=== PATIENT | female | born 1945 | race Caucasian/White ===

== ENCOUNTER → 2016-05-30 | Outpatient (CLI) | payer OTHER ==
[~2016-05-30] MED LIST: GADOBUTROL 10 ML VIAL IVP ONE
--- NOTE | 2016-05-30 18:10 | CT ---
CT CHEST, without contrast HISTORY: Follow-up pulmonary nodules, history of kidney cancer TECHNIQUE: Multidetector noncontrast helical CT was performed through the chest. COMPARISON: March 05, 2016 Findings: 4 tiny noncalcified right lung pulmonary nodules, series 3 image 119, 141, 144 and 172 are stable. 2 low density lesions in the right lobe of the liver, in the dome measuring 4.2 cm and in the lower lateral right lower lobe measuring 1.8 cm are stable. A tiny low-density lesion in the anterio r left lobe of the liver on image 183 is also unchanged in retrospect. There are no new pulmonary nod ules or liver lesions. There is no mediastinal or hilar adenopathy. The left thyroid lobe remains abs ent. The right thyroid gland remains normal. Heart size is normal without pericardial effusion. There is no pleural effusion. No skeletal abnormality is identified. Impression: Stable pulmonary nodules and liver lesions x3 months. These have been previously reported stable since August 2015. No evidence for metastatic disease.
--- NOTE | 2016-05-30 18:26 | MR ---
MRI of the Abdomen (Without and With Contrast) Clinical Indications: Right abdominal pain, history of left renal cell carcinoma treated with nephrec truong Technique: Precontrast 2D FIESTA axial , FSE T2 breath-hold axial and coronal, in and out of phase a xial imaging, and T1 LAVA fat-suppressed imaging. Pre- and postcontrast axial T1 fat-suppressed image s before and 1 minute, 3 minutes, 5 minutes and 10 minutes after 10 mL of Gadavist were injected intr avenously without complication using a power injector. Findings: Suspect cholelithiasis. No obvious secondary evidence for biliary dilatation or cholecystit is. There is no evidence of recurrent mass in the left nephrectomy bed or retroperitoneal adenopathy at the level of the renal miladys. Multiple hepatic cysts, mild fatty infiltration of the liver and mese nteric panniculitis in the left abdomen are stable. There is no ascites or evidence for metastatic re nal cell carcinoma.. Impression:1. Possible cholelithiasis. Consider fasting gallbladder sonography for further evaluation . 2. The remainder of the MRI is stable x4 months and reportedly stable since 2013.
== END ==
LOC: FIMAGING 14:31
PROVIDERS: ATTEND Internal Medicine Hematology & Oncology
DX: R10.12 Left upper quadrant pain (principal); Z85.528 Personal history of other malignant neoplasm of kidney
CPT/HCPCS: A9585

== ENCOUNTER → 2016-06-19 | Outpatient (CLI) | payer OTHER ==
--- NOTE | 2016-06-19 16:52 | US ---
Right Upper Quadrant Abdominal Sonogram History: Possible gallstones, RUQ pain, R10.11, K80.20. Comparison: MRI abdomen May 30, 2016 Findings: There are several mobile gallstones, maximally measuring 8 mm. There is no gallbladder wall thickening or pericholecystic fluid. The liver is echogenic consistent with fatty infiltration. It m easures 15 cm in length. There is no intra or extrahepatic biliary dilatation. The right kidney, visu alized pancreas, and common duct (6 mm) are normal. Hepatic simple cysts are confirmed. There is no a scites. The visualized aorta and IVC are normal. Impression: 1. Nonobstructive cholelithiasis. 2. Benign hepatic cysts.
== END ==
LOC: BRMIMAGING 11:24
PROVIDERS: ATTEND Surgery
DX: K80.20 Calculus of gallbladder without cholecystitis without obstruction (principal); K76.89 Other specified diseases of liver
CPT/HCPCS: 76705-PO

== ENCOUNTER 2016-07-14 05:37 | Day surgery (SDC) | payer OTHER ==
[2016-07-14] MEDS ORDERED: LR 1,000 ML IV ONE (05:47)
[2016-07-14] MEDS ORDERED: LIDOCAINE 1% 5 ML SDV ID PRN (05:47)
[2016-07-14] MEDS ORDERED: LIDOCAINE 1% 5 ML SDV ONE (05:49)
[2016-07-14] MEDS ORDERED: cefOXitin SODIUM 1 GM in D5W 50 ML IV ONE (06:00)
[2016-07-14] MEDS ORDERED: BUPIVACAINE 0.5% 30 ML SDV ONE (06:32)
[2016-07-14] MEDS ORDERED: HEPARIN 1000 UNIT/1 ML MDV ONE ×2 (06:32)
[2016-07-14] MEDS ORDERED: ceFAZolin 1 GM/5 ML SYR ONE (06:32)
[2016-07-14 06:41] LABS: % IMMATURE GRANULYOCYTES 0.2 % (0.0-1.1); ABSOLUTE IMMATURE GRANULOCYTES 0.01 10^3/uL (0.00-0.10); ADD DIFF? NO; ADD MORPH? NO; ADD SCAN? NO; ATYPICAL LYMPHOCYTE FLAG 0 (0-99); FRAGMENT RBC FLAG 0 (0-99); HEMATOCRIT 41.8 % (38.0-47.0); LEFT SHIFT FLG 0 (0-99); LIPEMIA HEMOLYSIS FLAG 80 (0-99); MEAN CELL HEMOGLOBIN 28.7 pg (27.9-34.1); MEAN CELL HEMOGLOBIN CONCENTR. 33.5 g/dL (32.4-36.7); MEAN CELL VOLUME 85.8 fL (81.5-99.8); PLATELET CLUMPS FLAG 0 (0-99); PLATELET COUNT 211 10^3/uL (150-400); RED BLOOD CELL COUNT 4.87 10^6/uL (4.18-5.33); RED CELL DISTRIBUTION WIDTH 13.6 % (11.5-15.2)
[2016-07-14 06:47] LABS: ALBUMIN 3.9 g/dL (3.5-5.0); BILIRUBIN,TOTAL 0.7 mg/dL (0.1-1.4); BILIRUBIN-CONJUGATED 0.3 mg/dL (0.0-0.5); BILIRUBIN-UNCONJUGATED 0.4 mg/dL (0.0-1.1)
[2016-07-14] MEDS ORDERED: DEXAMETHASONE 4 MG/ML VIAL ONE (07:06)
[2016-07-14] MEDS ORDERED: ONDANSETRON 4 MG/2 ML VIAL ONE ×2 (07:06→09:40)
[2016-07-14] MEDS ORDERED: LIDOCAINE 2% 100 MG/5 ML SYR IVP ONE (07:06)
[2016-07-14] MEDS ORDERED: MIDAZOLAM 2 MG/2 ML VIAL ONE (07:06)
[2016-07-14] MEDS ORDERED: ROCURONIUM 50 MG/5 ML VIAL ONE (07:06)
[2016-07-14] MEDS ORDERED: PROPOFOL 200 MG/20 ML VIAL ONE (07:06)
[2016-07-14] MEDS ORDERED: SUGAMMADEX SODIUM 200 MG/2 ML VIAL IVP ONE (07:06)
[2016-07-14] MEDS ORDERED: fentaNYL 250 MCG/5 ML INJ ONE (07:06)
[2016-07-14 07:24] LABS: ANION GAP 12 mEq/L (8-16); CALCIUM 9.1 mg/dL (8.5-10.4); CARBON DIOXIDE 22 mEq/l (22-31); CHLORIDE 110 mEq/L (97-110); CREATININE 1.1 mg/dL (0.6-1.0); GLOMERULAR FILTRATION RATE 49; GLUCOSE 89 mg/dL (70-100); POTASSIUM 4.4 mEq/L (3.5-5.2); SODIUM 144 mEq/L (134-144)
[2016-07-14] MEDS ORDERED: HYDROmorphONE/DILAUDID 1 MG/ML SYR ONE (09:19)
[2016-07-14] MEDS ORDERED: PROMETHAZINE HCL 25 MG/ML INJ ONE (09:54)
[2016-07-14] MEDS ORDERED: HYDROCODONE/APAP 5/325 TAB ONE (11:55)
== END 2016-07-14 13:30 | disposition home health service (06) ==
LOC: FSGY 05:37
PROVIDERS: ATTEND Surgery
PROC: 0WQF0ZZ Repair Abdominal Wall, Open Approach (ICD-10-PCS; principal; 2016-07-14 07:15)
PROC: 0FT44ZZ Resection of Gallbladder, Percutaneous Endoscopic Approach (ICD-10-PCS; principal; 2016-07-14 07:15)
DX: K80.20 Calculus of gallbladder without cholecystitis without obstruction (principal); K42.9 Umbilical hernia without obstruction or gangrene; I10 Essential (primary) hypertension; Z85.528 Personal history of other malignant neoplasm of kidney; Z90.5 Acquired absence of kidney
CPT/HCPCS: J0697; J1100; J1170; J2001; J2250; J2405; J2550; J2704; J3010

== ENCOUNTER 2016-08-03 21:35 | Emergency (ER) | payer OTHER ==
[2016-08-03 21:48] VITALS: RESP 18
[2016-08-03 22:15] LABS: % IMMATURE GRANULYOCYTES 0.1 % (0.0-1.1); ABSOLUTE IMMATURE GRANULOCYTES 0.01 10^3/uL (0.00-0.10); ADD DIFF? NO; ADD MORPH? NO; ADD SCAN? NO; ATYPICAL LYMPHOCYTE FLAG 0 (0-99); FRAGMENT RBC FLAG 0 (0-99); HEMATOCRIT 43.4 % (38.0-47.0); HEMOGLOBIN 14.5 g/dL (12.6-16.3); LEFT SHIFT FLG 0 (0-99); LIPEMIA HEMOLYSIS FLAG 80 (0-99); MEAN CELL HEMOGLOBIN 28.6 pg (27.9-34.1); MEAN CELL HEMOGLOBIN CONCENTR. 33.4 g/dL (32.4-36.7); MEAN CELL VOLUME 85.6 fL (81.5-99.8); MEAN PLATELET VOLUME 10.8 fL (8.7-11.7); PLATELET CLUMPS FLAG 10 (0-99); PLATELET COUNT 231 10^3/uL (150-400); RED BLOOD CELL COUNT 5.07 10^6/uL (4.18-5.33); RED CELL DISTRIBUTION WIDTH 13.7 % (11.5-15.2)
[2016-08-03 22:18] LABS: COLOR PALE YELLOW; LEUKOCYTE ESTERASE,URINE NEGATIVE (NEGATIVE); NITRITE,URINE NEGATIVE (NEGATIVE)
--- NOTE | 2016-08-03 22:20 | EDPHY ---
H & P Stated Complaint: Right sided abdo pain and back pain, starting . Time Seen by Provider: 08/03/16 22:04 HPI/ROS: HPI The patient presents with progressive right-sided upper abdominal and right back pain which has been present for the last 4 days. It started slowly and has gotten progressively worse. She tried taking [place] this evening without any improvement in the pain. She describes it is sharp, severe, constant. She has not had any nausea, vomiting, diarrhea or constipation. She has had urinary frequency tonight. She has not had a fever. She is about 20 days status post cholecystectomy and umbilical hernia repair by Dr. Wagner. REVIEW OF SYSTEMS Constitutional: No fever, no chills. Eyes: No discharge. ENT: No sore throat. Cardiovascular: No chest pain, no palpitations. Respiratory: No cough, no shortness of breath. Gastrointestinal: No abdominal pain, no vomiting. Genitourinary: No hematuria. Musculoskeletal: No back pain. Skin: No rashes. Neurological: No headache. PMHx: Renal cell carcinoma status post resection of left kidney Soc Hx: Housed FHx: PHYSICAL General Appearance: Alert, uncomfortable, pacing around the room Eyes: Pupils equal and round no pallor or injection ENT, Mouth: Mucous membranes moist Respiratory: There are no retractions, lungs are clear to auscultation Cardiovascular: Regular rate and rhythm Gastrointestinal: Abdomen is soft with tenderness in her right upper quadrant, umbilical region is nontender Back: She has right-sided flank tenderness Neurological: A&O, moves all extremities Skin: Warm and dry, no rashes Musculoskeletal: Neck is supple non tender Extremities: symmetrical, full range of motion Psychiatric: Patient is oriented X 3, there is no agitation Source: Patient Exam Limitations: No limitations - Personal History Current Tetanus Diphtheria and Acellular Pertussis (TDAP): Yes - Medical/Surgical History Hx Asthma: No Hx Chronic Respiratory Disease: No Hx Diabetes: No Hx Cardiac Disease: No Hx Renal Disease: Yes Hx Cirrhosis: No Hx Alcoholism: No Hx HIV/AIDS: No Hx Splenectomy or Spleen Trauma: No Other PMH: PMH:PRE-DIABETES,THYROID CA,HTN. PSH:THYROID,APPY,HYST,TONSILS,VEIN STRIPPING - Social History Smoking Status: Never smoked Constitutional: Initial Vital Signs Temperature (C) 36.4 C 08/03/16 21:42 Heart Rate 69 03/26/17 21:42 Respiratory Rate 18 08/03/16 21:42 Blood Pressure 157/73 H 08/03/16 21:42 O2 Sat (%) 95 08/03/16 21:42 O2 Delivery Mode Room Air O2 (L/minute) 2 Allergies/Adverse Reactions: lisinopril Allergy (Severe, Verified 04/04/14 17:25) Other-Enter Comments Iodinated Contrast Media - Oral and Allergy (Intermediate, Verified 04/04/14 17: 25) Hives Home Medications: Medication Instructions Recorded Metformin HCl 500 mg PO DAILY PRN 01/03/11 Cholecalciferol Vit D3 [Vitamin D3 1,000 units PO DAILY 04/04/14 (*)] amLODIPine BESYLATE [Norvasc 5 mg 5 mg PO DAILY PRN 04/04/14 (*)] Synthroid 150 mcg (*) 1 tab DAILY 07/11/16 Vicodin 5-300 mg Tablet 0.5 tab Q4HRS* PRN 07/11/16 Medical Decision Making - Diagnostics Imaging: Ultrasound right upper quadrant: Impression: 1. Postoperative changes from recent cholecystectomy. 2. Hepatic cysts once again noted. 3. Hepatic steatosis. Discussed with Dr. Mares of Radiology. CT abdomen pelvis without IV contrast: Impression: 1. Stable liver cysts. 2. No CT evidence of abscess or bowel obstruction. 3. Postoperative changes from prior cholecystectomy. 4. Previous left nephrectomy with stable appearance of the right kidney. 5. Stable mesenteric nodes with some haziness of the central mesentery to the left of midline in the midabdomen. Discussed with Dr. Mares of Radiology. ED Course/Re-evaluation: The emergency room, patient was given fluids, Toradol, low dose of Dilaudid for her pain with improvement in her symptoms. Labs were checked and were all unremarkable and at her baseline. She continued to have some pain and felt nauseated after the pain medication. Right upper quadrant ultrasound was performed that showed post cholecystectomy changes with about a 1 cm fluid collection, likely blood, consistent with her recent surgical history. I consulted with Dr. Wagner about the patient and he thought that her symptoms were fairly remote from her operation to be related. He recommended CT scan which I ordered and was also unremarkable. I have discussed this with the patient. Her pain has improved and she feels well enough to go home. She can follow up with Dr. Wagner tomorrow. The cause of her pain is unclear, however I doubt there is any sinister cause at this point. She will be discharged home with a prescription for Zofran. Differential Diagnosis: This is a 71-year-old female with history of renal cell carcinoma, recent laparoscopic cholecystectomy and umbilical hernia repair, who presents with right-sided upper abdominal pain and right back pain. Differential diagnosis includes post cholecystectomy syndrome, retained gallstone, ureterolithiasis, pyelonephritis, pancreatitis. - Data Points Laboratory Results: Laboratory Results 08/03/16 22:05 08/03/16 22:05 08/03/16 08/03/16 08/03/16 22:05 22:05 22:05 WBC 7.66 10^3/uL 10^3/uL (3.80-9.50) RBC 5.07 10^6/uL 10^6/uL (4.18-5.33) Hgb 14.5 g/dL g/dL (12.6-16.3) Hct 43.4 % % (38.0-47.0) MCV 85.6 fL fL (81.5-99.8) MCH 28.6 pg pg (27.9-34.1) MCHC 33.4 g/dL g/dL (32.4-36.7) RDW 13.7 % % (11.5-15.2) Plt Count 231 10^3/uL 10^3/uL (150-400) MPV 10.8 fL fL (8.7-11.7) Neut % (Auto) 44.3 % % (39.3-74.2) Lymph % (Auto) 38.9 % % (15.0-45.0) [place] % (Auto) 5.7 % % (4.5-13.0) Eos % (Auto) 10.1 % H % (0.6-7.6) Baso % (Auto) 0.9 % % (0.3-1.7) Nucleat RBC Rel Count 0.0 % % (0.0-0.2) Absolute Neuts (auto) 3.39 10^3/uL 10^3/uL (1.70-6.50) Absolute Lymphs (auto) 2.98 10^3/uL 10^3/uL (1.00-3.00) Absolute Monos (auto) 0.44 10^3/uL 10^3/uL (0.30-0.80) Absolute Eos (auto) 0.77 10^3/uL H 10^3/uL (0.03-0.40) Absolute Basos (auto) 0.07 10^3/uL 10^3/uL (0.02-0.10) Absolute Nucleated RBC 0.00 10^3/uL 10^3/uL (0-0.01) Immature Gran % 0.1 % % (0.0-1.1) Immature Gran # 0.01 10^3/uL 10^3/uL (0.00-0.10) Sodium 143 mEq/L mEq/L (134-144) Potassium 5.0 mEq/L mEq/L (3.5-5.2) Chloride 107 mEq/L mEq/L (97-110) Carbon Dioxide 23 mEq/l mEq/l (22-31) Anion Gap 13 mEq/L mEq/L (8-16) BUN 18 mg/dL mg/dL (7-23) Creatinine 1.2 mg/dL H mg/dL (0.6-1.0) Estimated GFR 45 Glucose 107 mg/dL H mg/dL (70-100) Calcium 9.3 mg/dL mg/dL (8.5-10.4) Total Bilirubin 0.4 mg/dL mg/dL (0.1-1.4) Conjugated Bilirubin 0.3 mg/dL mg/dL (0.0-0.5) Unconjugated Bilirubin 0.1 mg/dL mg/dL (0.0-1.1) AST 24 IU/L IU/L (14-46) ALT 32 IU/L IU/L (9-52) Alkaline Phosphatase 86 IU/L IU/L (38-126) Total Protein 7.3 g/dL g/dL (6.3-8.2) Albumin 4.1 g/dL g/dL (3.5-5.0) Lipase 121.0 IU/L IU/L (23-300) Urine Color PALE YELLOW Urine Appearance CLEAR Urine pH 7.0 (5.0-7.5) Ur Specific [place] 1.013 (1.002-1.030) Urine Protein NEGATIVE (NEGATIVE) Urine Ketones NEGATIVE (NEGATIVE) Urine Blood NEGATIVE (NEGATIVE) Urine Nitrate NEGATIVE (NEGATIVE) Urine Bilirubin NEGATIVE (NEGATIVE) Urine Urobilinogen NEGATIVE EU EU (0.2-1.0) Ur Leukocyte Esterase NEGATIVE (NEGATIVE) Ur Culture Indicated? NOT INDICATED (NI) Urine Glucose NEGATIVE (NEGATIVE) Medications Given: Discontinued Medications Hydromorphone HCl (Dilaudid) 0.4 mg IVP EDNOW ONE Stop: 08/03/16 22:17 Last Admin: 08/03/16 22:26 Dose: 0.4 mg Sodium Chloride (Ns) 1,000 mls @ 0 mls/hr IV ONCE ONE PRN Reason: Wide Open Stop: 08/03/16 22:18 Last Admin: 08/03/16 22:26 Dose: 1,000 mls Ketorolac Tromethamine (Toradol) 15 mg IVP EDNOW ONE Stop: 08/03/16 22:17 Last Admin: 08/03/16 22:26 Dose: 15 mg Ondansetron HCl (Zofran) 4 mg IVP EDNOW ONE Stop: 08/03/16 22:31 Last Admin: 08/03/16 22:30 Dose: 4 mg Ondansetron HCl (Zofran) 4 mg IVP EDNOW ONE Stop: 08/03/16 23:49 Last Admin: 08/04/16 00:00 Dose: 4 mg Ondansetron HCl (Zofran Odt 4 Mg Prepack#2) 1 btl TAKEHOME EDNOW ONE Stop: 08/04/16 00:39 Last Admin: 08/04/16 00:46 Dose: 1 btl Departure - Departure Disposition: Home, Routine, Self-Care Clinical Impression: Right upper quadrant abdominal pain, Right flank pain Condition: Good Instructions: Ondansetron (By mouth), Acute Abdominal Pain (ED) Additional Instructions: Please return to the emergency room if your worse in any way. Otherwise, you can follow up with Dr. Wagner's clinic tomorrow. Referrals: Donita Winters MD [Primary Care Provider] - As per Instructions Tip Wagner MD [Medical Doctor] - As per Instructions
[2016-08-03 22:25] LABS: ALANINE AMINOTRANSFERASE 32 IU/L (9-52); ALBUMIN 4.1 g/dL (3.5-5.0); ALKALINE PHOSPHATASE 86 IU/L (38-126); ANION GAP 13 mEq/L (8-16); ASPARTATE AMINOTRANSFERASE 24 IU/L (14-46); BILIRUBIN,TOTAL 0.4 mg/dL (0.1-1.4); BILIRUBIN-CONJUGATED 0.3 mg/dL (0.0-0.5); BILIRUBIN-UNCONJUGATED 0.1 mg/dL (0.0-1.1); CALCIUM 9.3 mg/dL (8.5-10.4); CARBON DIOXIDE 23 mEq/l (22-31); CHLORIDE 107 mEq/L (97-110); CREATININE 1.2 mg/dL (0.6-1.0); GLOMERULAR FILTRATION RATE 45; GLUCOSE 107 mg/dL (70-100); SODIUM 143 mEq/L (134-144); TOTAL PROTEIN 7.3 g/dL (6.3-8.2)
[2016-08-03] MEDS: HYDROmorphONE/DILAUDID 1 MG/ML SYR IVP ONE (22:26)
[2016-08-03] MEDS: NS 1,000 ML IV ONE (22:26)
[2016-08-03] MEDS: KETOROLAC 15 MG/1 ML SDV IVP ONE (22:26)
[2016-08-03] MEDS ORDERED: ONDANSETRON 4 MG/2 ML VIAL ONE (22:27)
[2016-08-03] MEDS: ONDANSETRON 4 MG/2 ML VIAL IVP ONE (22:30)
[2016-08-04] MEDS: ONDANSETRON 4 MG/2 ML VIAL IVP ONE
[2016-08-04] MEDS ORDERED: ONDANSETRON 4MG PREPACK#2 BTL TAKEHOME ONE (00:38)
[2016-08-04] MEDS: ONDANSETRON 4MG PREPACK#2 BTL TAKEHOME ONE (00:46)
[2016-08-04 00:48] VITALS: BP 150/61; PULSE 58; TEMP 97.9; O2SAT 98
== END 2016-08-04 00:47 | disposition home or self-care (01) ==
DX: R10.11 Right upper quadrant pain (principal); I10 Essential (primary) hypertension; Z85.850 Personal history of malignant neoplasm of thyroid
CPT/HCPCS: 96374; J1170; J1885; J2405

== ENCOUNTER → 2016-12-26 | Outpatient (CLI) | payer OTHER | LOC: FIMAGING 11:23 | PROVIDERS: ATTEND Internal Medicine Hematology & Oncology | DX: Z08 Encounter for follow-up examination after completed treatment for malignant neoplasm (principal); Z85.528 Personal history of other malignant neoplasm of kidney; Z85.850 Personal history of malignant neoplasm of thyroid; R91.8 Other nonspecific abnormal finding of lung field; K76.89 Other specified diseases of liver | CPT/HCPCS: A9585 ==

== ENCOUNTER → 2017-02-02 | Outpatient (CLI) | payer OTHER | LOC: FIMAGING 07:54 | PROVIDERS: ATTEND Nurse Practitioner | DX: M18.12 Unilateral primary osteoarthritis of first carpometacarpal joint, left hand (principal); M19.042 Primary osteoarthritis, left hand ==

== ENCOUNTER → 2017-02-26 | Outpatient (CLI) | payer OTHER | LOC: FIMAGING 08:34 | PROVIDERS: ATTEND Internal Medicine Hematology & Oncology | DX: R07.81 Pleurodynia (principal) ==

== ENCOUNTER → 2017-05-08 | Outpatient (CLI) | payer OTHER | LOC: FIMAGING 09:57 | PROVIDERS: ATTEND Internal Medicine Hematology & Oncology | DX: R07.9 Chest pain, unspecified (principal); Z85.528 Personal history of other malignant neoplasm of kidney; Z85.850 Personal history of malignant neoplasm of thyroid | CPT/HCPCS: 78306; A9503 ==

== ENCOUNTER → 2017-07-24 | Outpatient (CLI) | payer OTHER | LOC: FIMAGING 14:23 | PROVIDERS: ATTEND Internal Medicine Hematology & Oncology | DX: S52.515A Nondisplaced fracture of left radial styloid process, initial encounter for closed fracture (principal); W01.0XXA Fall on same level from slipping, tripping and stumbling without subsequent striking against object, initial encounter; Y92.002 Bathroom of unspecified non-institutional (private) residence as the place of occurrence of the external cause; Y93.E1 Activity, personal bathing and showering ==

== ENCOUNTER → 2017-09-15 | Outpatient (CLI) | payer OTHER | LOC: BMCIMAGING 15:11 | PROVIDERS: ATTEND Orthopaedic Surgery Hand Surgery | DX: S52.515D Nondisplaced fracture of left radial styloid process, subsequent encounter for closed fracture with routine healing (principal) ==

== ENCOUNTER → 2017-10-06 | Outpatient (CLI) | payer OTHER | LOC: FIMAGING 09:17 | PROVIDERS: ATTEND Orthopaedic Surgery Hand Surgery | DX: M25.512 Pain in left shoulder (principal); M25.812 Other specified joint disorders, left shoulder; M19.012 Primary osteoarthritis, left shoulder; M75.22 Bicipital tendinitis, left shoulder; S52.592D Other fractures of lower end of left radius, subsequent encounter for closed fracture with routine healing; M24.132 Other articular cartilage disorders, left wrist; M94.232 Chondromalacia, left wrist; M19.032 Primary osteoarthritis, left wrist ==

== ENCOUNTER → 2017-10-26 | Outpatient (CLI) | payer OTHER | LOC: FIMAGING 12:00 | PROVIDERS: ATTEND Internal Medicine Hematology & Oncology | DX: M89.9 Disorder of bone, unspecified (principal); Z85.528 Personal history of other malignant neoplasm of kidney; Z85.850 Personal history of malignant neoplasm of thyroid ==

== ENCOUNTER → 2018-02-22 | Outpatient (CLI) | payer OTHER | LOC: SBRMNEURO 21:00 | PROVIDERS: ATTEND Internal Medicine Sleep Medicine | DX: G47.33 Obstructive sleep apnea (adult) (pediatric) (principal) ==

== ENCOUNTER → 2018-06-15 | Outpatient (CLI) | payer OTHER | LOC: FIMAGING 16:46 | PROVIDERS: ATTEND Orthopaedic Surgery Hand Surgery | DX: M50.322 Other cervical disc degeneration at C5-C6 level (principal) ==

== ENCOUNTER 2018-08-12 18:00 | Emergency (ER) | payer OTHER ==
--- NOTE | 2018-08-12 19:07 | EDPHY ---
HPI/HX/ROS/PE/MDM Narrative: CHIEF COMPLAINT: Right leg swelling HPI: The patient is a 73-year-old female with a history of previous episodes of phlebitis and DVT who presents with painful swelling to her right medial thigh for several days. She denies chest pain or shortness of breath. She has called her doctor today who referred her to urgent care who sent her to us. She denies fever. REVIEW OF SYSTEMS: Aside from elements discussed in the HPI, a comprehensive 10-point review of systems was reviewed and is negative. PMH:Phlebitis. SOCIAL HISTORY: Denies alcohol or drug abuse. PHYSICAL EXAM: General:Patient is alert, in no acute distress. ENT:Eyes are normal to inspection. ENT inspection normal. Neck: Normal inspection. Full range of motion. Respiratory:No respiratory distress. Breath sounds normal bilaterally. Cardiovascular: Regular rate and rhythm. Strong peripheral pulses. Normal cap refill. Abdomen:The abdomen is nontender to palpation. There are no peritoneal signs. There are normal bowel sounds. Back: Normal to inspection. No tenderness to palpation. Skin: Normal color. No rash. Warm and dry. Extremities: There is a sinuous area of erythema, induration and tenderness on the medial right calf, measuring approximately 12 inches in total length. Tenderness to similar area on left leg but without skin changes. Neuro: Oriented x3. Normal motor function. Normal sensory function. ED Course: Ultrasound of bilateral lower extremities reveals a large clot in the right greater saphenous vein similar to 1 seen on an ultrasound 2010. This appears acute and corresponds to the area of erythema. No DVT is seen. Left lower extremity is negative for abnormality. MDM: This patient presents with a painful red swelling of her right lower extremity. This is found be secondary to a superficial venous thrombophlebitis. Given the size of this clot as well as its proximity to the deep venous system, I discussed options with her regarding anticoagulation which is currently recommended. I will start her on Xarelto for the time being and she will need to follow up with her primary care physician to further address this. - Data Points Imaging: Discussed imaging studies w/ order caller Radiologist General Time Seen by Provider: 08/12/18 18:23 Initial Vital Signs: Initial Vital Signs Temperature (C) 36.9 C 08/12/18 18:05 Heart Rate 82 08/12/18 18:05 Respiratory Rate 18 08/12/18 18:05 Blood Pressure 127/70 H 08/12/18 18:05 O2 Sat (%) 94 08/12/18 18:05 O2 Delivery Mode Room Air Allergies/Adverse Reactions: lisinopril Allergy (Severe, Verified 08/12/18 18:04) Other-Enter Comments Iodinated Contrast- Oral and IV Dye Allergy (Intermediate, Verified 08/12/18 18: 04) Hives Home Medications: Medication Instructions Recorded Metformin HCl 500 mg PO DAILY PRN 01/03/11 amLODIPine BESYLATE [Norvasc 5 mg 5 mg PO DAILY PRN 04/04/14 (*)] Synthroid 150 mcg (*) 1 tab DAILY 07/11/16 Vicodin 5-300 mg Tablet 0.5 tab Q4HRS* PRN 07/11/16 Rivaroxaban [Xarelto 15mg (*)] 15 mg PO BID #14 tab 08/12/18 Departure - Departure Disposition: Home, Routine, Self-Care Clinical Impression: Thrombophlebitis of superficial veins of right lower extremity Condition: Good Instructions: Superficial Thrombophlebitis (ED) Additional Instructions: We have started you on an anticoagulant - please follow-up with your primary doctor within one week to review this and potentially change to a different agent. Return to the ED for chest pain, shortness of breath, worsening swelling or other concerns. Prescriptions: Rivaroxaban [Xarelto 15mg (*)] 15 mg PO BID #14 tab
[2018-08-12] MEDS ORDERED: RIVAROXABAN 15 MG TAB PO ONE (20:20)
[2018-08-12 21:45] VITALS: BP 126/75
== END 2018-08-12 21:00 | disposition home or self-care (01) ==
DX: I80.01 Phlebitis and thrombophlebitis of superficial vessels of right lower extremity (principal)

== ENCOUNTER 2018-08-13 00:35 | Emergency (ER) | payer OTHER ==
--- NOTE | 2018-08-13 00:42 | EDPHY ---
H & P Time Seen by Provider: 08/13/18 00:42 HPI/ROS: HPI CHIEF COMPLAINT: Left eyelid drooping, headache, stroke alert called by nursing staff HISTORY OF PRESENT ILLNESS: 73-year-old female, history of renal cancer, thyroid cancer, was recently in the emergency room earlier tonight diagnosed with a clot in her saphenous vein, placed on Xarelto, she returned home around 915 at night. She developed a left-sided headache behind her left eye. She reports she has a history of migraine headaches and this headache feels exactly like her previous migraines associated with her migraine headaches she gets of left eye lid droop. Patient states she got home around 950 and developed left- sided headache and left-sided eyelid droop. She called back to the hospital to states that she had headache after being started on Xarelto was recommend she come back to the emergency room for evaluation with this. Patient arrived to the emergency room and stroke alert was called in room 18 by nursing staff upon arrival. The patient's main complaint left-sided headache. Exactly like her previous migraine headaches. She denies chest pain or shortness of breath. She states with previous migraine headaches that exactly what happens left eyelid droop. Past Medical History: Renal cancer, thyroid cancer, phlebitis Past Surgical History: No recent surgery thyroid surgery, nephrectomy Social History: Denies drugs alcohol tobacco. Family History: Noncontributory Of note patient cannot get contrast as anaphylaxis to contrast. ROS REVIEW OF SYSTEMS: 10 Systems were reviewed and negative with the exception of the elements mentioned in the history of present illness. Exam Constitutional triage nursing summary reviewed, vital signs reviewed, awake/ alert. GCS 15, alert or x4, Eyes normal conjunctivae and sclera, EOMI, PERRLA. HENT normal inspection, atraumatic, moist mucus membranes, no epistaxis, neck supple/ no meningismus, no raccoon eyes. Respiratory clear to auscultation bilaterally, normal breath sounds, no respiratory distress, no wheezing. Cardiovascular rate normal, regular rhythm, no murmur, no edema, distal pulses normal. Gastrointestinal soft, non-tender, no rebound, no guarding, normal bowel sounds, no distension, no pulsatile mass. Genitourinary no CVA tenderness. Musculoskeletal no midline vertebral tenderness, full range of motion, no calf swelling, no tenderness of extremities, no meningismus, good pulses, neurovascularly intact. Skin pink, warm, & dry, no rash, skin atraumatic. Neurologic cranial nerves are intact, I do not appreciate a significant facial droop, she does have some mild lid lag on the left upper lid awake, alert and oriented x 3, AAOx3, moves all 4 extremities equally, motor intact, sensory intact, CN II-XII intact, normal cerebellar, normal vision, normal speech. Psychiatric normal mood/affect. Heme/Lymph/Immune no lymphadenopathy. Differential Diagnosis: Includes but is not limited to in a particular order migraine headache, tension headache, cluster headache, intracranial bleed, stroke Medical Decision Making: Plan for this patient IV establishment blood draw, EKG , CT scan head without contrast. Re-evaluation: A stroke alert was called upon arrival. Time of arrival: 1236AM Time of Stroke alert: 1236AM Time of Onset: 915PM Initial NIHSS: 0 CT scan head without contrast negative for acute intracranial abnormality. Faxed me at 4:30 a.m. By direct Radiology. No bleed. EKG interpretation by me on record in [facility] system. Impression time of EKG 1:17 a.m., sinus rhythm rate of 69, LVH present. No signs of acute ischemia. 0130: Dr. Gallardo with [facility] has seen and evaluated the patient. She does not recommend tPA nor does she recommend a CT angiogram head and neck. She believes this is a migraine headache and would not further evaluate her for stroke. Plan for acute treatment of migraine headache. Patient is not a tPA candidate as she is on Xarelto, this is felt to be a migraine headache and not a stroke, and a NIH stroke scale 0 0605: Patient re-evaluated this time she has been in emergency room all night. She has done very well her headache is completely resolved with migraine cocktail. She did vomit 1 time here in emergency room received IV fluids and nausea medicine is greatly improved. She has been monitored in emergency room for over 5 hr her neurological exam is unremarkable and is not changed. She denies any headache, denies focal numbness or tingling. She is requesting discharge. Her CT scan head without contrast negative for acute bleed. She feels much better and I believe this to be a migraine headache. She would like to go home. We discussed return precautions she understands return emergency room she develops worsening symptoms includes worsening headache, vomiting, fever, not doing well. Patient has had no further neurological deficits or progression of neurological symptoms while in the emergency room. Source: Patient - Medical/Surgical History Hx Asthma: No Hx Chronic Respiratory Disease: No Hx Diabetes: No Hx Cardiac Disease: No Hx Renal Disease: Yes Hx Cirrhosis: No Hx Alcoholism: No Hx HIV/AIDS: No Hx Splenectomy or Spleen Trauma: No Other PMH: PMH:PRE-DIABETES,THYROID CA,HTN. PSH:THYROID,APPY,HYST,TONSILS,VEIN STRIPPING. renl cancer with nephrectomy - Social History Smoking Status: Never smoked Constitutional: Initial Vital Signs Temperature (C) 36.6 C 08/13/18 00:35 Heart Rate 82 08/13/18 00:35 Respiratory Rate 18 08/13/18 00:35 Blood Pressure 144/75 H 08/13/18 00:35 O2 Sat (%) 95 08/13/18 00:35 O2 Delivery Mode Room Air O2 (L/minute) 2 Allergies/Adverse Reactions: lisinopril Allergy (Severe, Verified 08/12/18 18:04) Other-Enter Comments Iodinated Contrast- Oral and IV Dye Allergy (Intermediate, Verified 08/12/18 18: 04) Hives Home Medications: Medication Instructions Recorded Metformin HCl 500 mg PO DAILY PRN 01/03/11 amLODIPine BESYLATE [Norvasc 5 mg 5 mg PO DAILY PRN 04/04/14 (*)] Synthroid 150 mcg (*) 1 tab DAILY 07/11/16 Vicodin 5-300 mg Tablet 0.5 tab Q4HRS* PRN 07/11/16 Rivaroxaban [Xarelto 15mg (*)] 15 mg PO BID #14 tab 08/12/18 Medical Decision Making - Data Points Laboratory Results: Laboratory Results 08/13/18 00:45 08/13/18 00:45 08/13/18 08/13/18 08/13/18 00:51 00:50 00:45 WBC RBC Hgb POC Hgb 14.3 gm/dL gm/dL (12.6-16.3) Hct POC Hct 42 % % (38-47) MCV MCH MCHC RDW Plt Count MPV Neut % (Auto) Lymph % (Auto) Cotton % (Auto) Eos % (Auto) Baso % (Auto) Nucleat RBC Rel Count Absolute Neuts (auto) Absolute Lymphs (auto) Absolute Monos (auto) Absolute Eos (auto) Absolute Basos (auto) Absolute Nucleated RBC Immature Gran % Immature Gran # POC Sodium 141 mEq/L mEq/L (135-145) Sodium 142 mEq/L mEq/L (135-145) POC Potassium 4.2 mEq/L mEq/L (3.3-5.0) Potassium 4.3 mEq/L mEq/L (3.5-5.2) POC Chloride 103 mEq/L mEq/L (97-110) Chloride 106 mEq/L mEq/L (97-110) Carbon Dioxide 24 mEq/l mEq/l (22-31) POC Total CO2 24 mEq/L mEq/L (22-31) Anion Gap 12 mEq/L mEq/L (6-14) POC BUN 20 mg/dL mg/dL (7-23) BUN 21 mg/dL mg/dL (7-23) Creatinine 1.1 mg/dL H mg/dL (0.6-1.0) POC Creatinine 1.1 mg/dL H mg/dL (0.6-1.0) Estimated GFR 49 Glucose 116 mg/dL H mg/dL (70-100) POC Glucose 119 mg/dL H mg/dL (70-100) Calcium 8.7 mg/dL mg/dL (8.5-10.4) POC Troponin I 0.00 ng/mL ng/mL (0.00-0.08) 08/13/18 00:45 WBC 10.77 10^3/uL H 10^3/uL (3.80-9.50) RBC 4.68 10^6/uL 10^6/uL (4.18-5.33) Hgb 13.8 g/dL g/dL (12.6-16.3) POC Hgb Hct 42.0 % % (38.0-47.0) POC Hct MCV 89.7 fL fL (81.5-99.8) MCH 29.5 pg pg (27.9-34.1) MCHC 32.9 g/dL g/dL (32.4-36.7) RDW 13.9 % % (11.5-15.2) Plt Count 212 10^3/uL 10^3/uL (150-400) MPV 10.7 fL fL (8.7-11.7) Neut % (Auto) 60.3 % % (39.3-74.2) Lymph % (Auto) 27.0 % % (15.0-45.0) Cotton % (Auto) 8.4 % % (4.5-13.0) Eos % (Auto) 3.4 % % (0.6-7.6) Baso % (Auto) 0.6 % % (0.3-1.7) Nucleat RBC Rel Count 0.0 % % (0.0-0.2) Absolute Neuts (auto) 6.49 10^3/uL 10^3/uL (1.70-6.50) Absolute Lymphs (auto) 2.91 10^3/uL 10^3/uL (1.00-3.00) Absolute Monos (auto) 0.90 10^3/uL H 10^3/uL (0.30-0.80) Absolute Eos (auto) 0.37 10^3/uL 10^3/uL (0.03-0.40) Absolute Basos (auto) 0.07 10^3/uL 10^3/uL (0.02-0.10) Absolute Nucleated RBC 0.00 10^3/uL 10^3/uL (0-0.01) Immature Gran % 0.3 % % (0.0-1.1) Immature Gran # 0.03 10^3/uL 10^3/uL (0.00-0.10) POC Sodium Sodium POC Potassium Potassium POC Chloride Chloride Carbon Dioxide POC Total CO2 Anion Gap POC BUN BUN Creatinine POC Creatinine Estimated GFR Glucose POC Glucose Calcium POC Troponin I Medications Given: Discontinued Medications Dexamethasone (Decadron Injection) 10 mg IVP EDNOW ONE Stop: 08/13/18 01:36 Last Admin: 08/13/18 02:16 Dose: 10 mg Diphenhydramine HCl (Benadryl Injection) 50 mg IVP EDNOW ONE Stop: 08/13/18 01:36 Last Admin: 08/13/18 02:33 Dose: Not Given Hydromorphone HCl (Dilaudid) 0.5 mg IVP EDNOW ONE Stop: 08/13/18 01:36 Last Admin: 08/13/18 02:16 Dose: 0.5 mg Sodium Chloride (Ns) 1,000 mls @ 0 mls/hr IV ONCE ONE; Wide Open PRN Reason: Protocol Stop: 08/13/18 00:48 Last Admin: 08/13/18 01:11 Dose: 1,000 mls Sodium Chloride (Ns) 1,000 mls @ 0 mls/hr IV ONCE ONE PRN Reason: Wide Open Stop: 08/13/18 03:50 Last Admin: 08/13/18 04:15 Dose: 1,000 mls Metoclopramide HCl (Reglan Injection) 10 mg IVP EDNOW ONE Stop: 08/13/18 01:36 Last Admin: 08/13/18 02:16 Dose: 10 mg Ondansetron HCl (Zofran) 4 mg IVP EDNOW ONE Stop: 08/13/18 02:45 Last Admin: 08/13/18 02:45 Dose: 4 mg Promethazine HCl (Phenergan) 6.25 mg IVP ONCE ONE Stop: 08/13/18 03:44 Last Admin: 08/13/18 03:46 Dose: 6.25 mg Point of Care Test Results: Chemistry 08/13/18 08/13/18 00:51 00:50 POC Sodium 141 mEq/L mEq/L (135-145) POC Potassium 4.2 mEq/L mEq/L (3.3-5.0) POC Chloride 103 mEq/L mEq/L (97-110) POC Total CO2 24 mEq/L mEq/L (22-31) POC BUN 20 mg/dL mg/dL (7-23) POC Creatinine 1.1 mg/dL H mg/dL (0.6-1.0) POC Glucose 119 mg/dL H mg/dL (70-100) POC Troponin I 0.00 ng/mL ng/mL (0.00-0.08) ISTAT H&H 08/13/18 00:51 POC Hgb 14.3 gm/dL gm/dL (12.6-16.3) POC Hct 42 % % (38-47) Departure - Departure Disposition: Home, Routine, Self-Care Clinical Impression: Migraine headache Qualifiers: Migraine type: other Status migrainosus presence: without status migrainosus Intractability: not intractable Qualified Code(s): G43.809 - Other migraine, not intractable, without status migrainosus Condition: Good Instructions: Migraine Headache (ED) Additional Instructions: 1. Rest 2. Stay well hydrated. 3. Return to the Er if worsening symptoms, fever, vomiting, not doing well. Referrals: Donita Winters MD [Primary Care Provider] - As per Instructions
[2018-08-13] MEDS ORDERED: NS 1,000 ML IV ONE ×2 (00:47→03:49)
[2018-08-13 01:02] LABS: PLATELET COUNT 212 10^3/uL (150-400)
[2018-08-13] MEDS ORDERED: METOCLOPRAMIDE 10 MG/2 ML VIAL IVP ONE (01:35)
[2018-08-13] MEDS ORDERED: HYDROmorphONE/DILAUDID 2 MG/ML INJ IVP ONE (01:35)
[2018-08-13] MEDS ORDERED: DEXAMETHASONE 10 MG/ML VIAL IVP ONE (01:35)
[2018-08-13] MEDS ORDERED: ONDANSETRON 4 MG/2 ML VIAL ONE (02:41)
[2018-08-13] MEDS ORDERED: ONDANSETRON 4 MG/2 ML VIAL IVP ONE (02:44)
[2018-08-13] MEDS ORDERED: PROMETHAZINE HCL 25 MG/ML INJ IVP ONE (03:43)
[2018-08-13 06:47] VITALS: BP 117/62
--- NOTE | 2018-08-14 08:12 | CPEKG ---
Test Reason : OPEN Blood Pressure : / mmHG Vent. Rate : 069 BPM Atrial Rate : 069 BPM P-R Int : 161 ms QRS Dur : 091 ms QT Int : 402 ms P-R-T Axes : 040 -01 057 degrees QTc Int : 431 ms Sinus rhythm Left ventricular hypertrophy Confirmed by Adonay Rios ([id number]) on 08/14/2018 8:11:57 AM Referred By: Adonay Rios Confirmed By:Adonay Rios
== END 2018-08-13 06:20 | disposition home or self-care (01) ==
DX: G43.809 Other migraine, not intractable, without status migrainosus (principal); H02.402 Unspecified ptosis of left eyelid; I80.01 Phlebitis and thrombophlebitis of superficial vessels of right lower extremity; E86.9 Volume depletion, unspecified; Z79.01 Long term (current) use of anticoagulants
CPT/HCPCS: 70450; 93005; 96361; 96374; 96375; 96376; 99284; J1100; J1170; J1200; J2405; J2550; J2765; 82435-PO; 82565-PO; 82947-PO; 84132-PO; 84295-PO; 84484-ER; 84520-PO; 85014-ER

== ENCOUNTER → 2018-09-10 | Outpatient (CLI) | payer OTHER | LOC: FIMAGING 18:15 | PROVIDERS: ATTEND Orthopaedic Surgery Hand Surgery | DX: M50.81 Other cervical disc disorders, high cervical region (principal); M50.821 Other cervical disc disorders at C4-C5 level; M50.822 Other cervical disc disorders at C5-C6 level; M48.02 Spinal stenosis, cervical region; M99.71 Connective tissue and disc stenosis of intervertebral foramina of cervical region ==

== ENCOUNTER → 2018-09-18 | Outpatient (CLI) | payer OTHER | LOC: FIMAGING 13:27 | PROVIDERS: ATTEND Physical Medicine & Rehabilitation | DX: M75.112 Incomplete rotator cuff tear or rupture of left shoulder, not specified as traumatic (principal); M75.22 Bicipital tendinitis, left shoulder; M75.82 Other shoulder lesions, left shoulder; M19.012 Primary osteoarthritis, left shoulder ==